=== PATIENT | female | born 1960 | race Caucasian/White ===

== ENCOUNTER 2017-08-18 08:28 | Observation (INO) | payer BC ==
[~2017-08-18] VITALS: Ht 154.9 cm; Wt 56.0 kg
[2017-08-18] VITALS (29 sets, daily range): BP systolic 116–171; BP diastolic 62–93; PULSE 58–90; RESP 16–23; Ht 154.9 cm; Wt 56.0 kg
[~2017-08-18 08:28] MED LIST: CIPROFLOXACIN 400 MG in D5W 200 ML IVPB SCH
[2017-08-18] MEDS ORDERED: ONDANSETRON 4 MG INJ IV PRN (08:30)
[2017-08-18] MEDS ORDERED: MIDAZOLAM 1 MG/ML 2 ML INJ IV PRN (08:30)
[2017-08-18] MEDS ORDERED: ATROPINE 1 MG/10 ML SYRINGE IV PRN (08:30)
[2017-08-18] MEDS ORDERED: LABETALOL HCL 20MG INJ IV PRN (08:30)
[2017-08-18] MEDS ORDERED: EPHEDrine SULFATE 50 MG/5 ML SYG IV PRN (08:30)
[2017-08-18] MEDS ORDERED: hydrALAzine 20 MG INJ IV PRN (08:30)
[2017-08-18] MEDS ORDERED: DIPHENHYDRAMINE 50 MG INJ IV PRN (08:30)
[2017-08-18] MEDS ORDERED: TEMA30CA6 PO (08:51)
[2017-08-18] MEDS ORDERED: ALPR1TAB2 PO (08:51)
[2017-08-18] MEDS ORDERED: RANI150T5 PO (08:51)
[2017-08-18] MEDS ORDERED: SENN-53 PO (08:52)
[2017-08-18] MEDS ORDERED: CARI350T PO (08:52)
[2017-08-18] MEDS ORDERED: AMLO5TAB4 PO (08:53)
[2017-08-18] MEDS ORDERED: ROCURONIUM 50 MG INJ ONE (09:56)
[2017-08-18] MEDS ORDERED: PROPOFOL 20 ML ONE (09:56)
[2017-08-18] MEDS ORDERED: NEOSTIGMINE 3 MG/3 ML SYRINGE ONE (09:56)
[2017-08-18] MEDS ORDERED: MIDAZOLAM 1 MG/ML 2 ML INJ ONE (09:56)
[2017-08-18] MEDS ORDERED: LIDOCAINE 2% (SDV) 5 ML INJ ONE (09:56)
[2017-08-18] MEDS ORDERED: GLYCOPYRROLATE 0.4 MG INJ ONE (09:56)
[2017-08-18] MEDS ORDERED: FENTAnyl 50 MCG/ML VIAL ONE ×2 (09:57→11:54)
[2017-08-18] MEDS ORDERED: MEPERIDINE 25 MG INJ ONE (11:54)
--- NOTE | 2017-08-18 11:55 | OPR ---
Date/Time of Note Date/Time of Note DATE: 08/18/17 TIME: 11:53 Operative Report Procedure Date: Aug 18, 2017 Preoperative Diagnosis bladder cancer Postoperative Diagnosis same Operation Performed TURBT of 2 large - extensive bladder cancer, right sided tumor 12 cm, left tumor 8 cm Surgeon see signature line Anesthesia Type: general Estimated Blood Loss: 50 - 100 ml's Transfusion Required: no Specimens bladder tumor Tubes/Drains [address] Complications: no Pt Condition Post Procedure: stable Disposition: PACU Indications clot retention, bladder cancer Operative\Procedure Findings large obstructing cancer Procedure Description Dictation # [id number] ORESTES CARCAMO Aug 18, 2017 11:55
[2017-08-18] MEDS ORDERED: CARISOPRODOL 350 MG TAB PO PRN (12:00)
[2017-08-18] MEDS ORDERED: ALPRAZOLAM 1 MG TAB PO PRN (12:00)
[2017-08-18] MEDS: FENTAnyl 50 MCG/ML VIAL IV PRN ×2 (12:20→12:33)
[2017-08-18] MEDS ORDERED: MEPERIDINE 25 MG INJ IV PRN (12:30)
[2017-08-18] MEDS ORDERED: ZOLPIDEM 5 MG TAB PO PRN (12:30)
[2017-08-18] MEDS ORDERED: MEPERIDINE 10 MG/ML 30 ML PCA IV SCH (12:30)
[2017-08-18] MEDS ORDERED: FENTAnyl 50 MCG/ML VIAL IV PRN ×2 (12:30)
--- NOTE | 2017-08-18 13:19 | OPR ---
DATE OF OPERATION: 08/18/2017 HISTORY: Lety Boles is a 57-year-old female with recurrent clot retention secondary to extensive bladder cancer, now presents for cystoscopy, trans resection of bladder tumor. How the procedure is performed, potential complications, and limitations have additionally been discussed. Preoperatively we discussed the extensive nature of the cancer, the potential for inability to remove all the cancer, transfusion continue bleeding, pain, bladder perforation especially in light of the extensive bladder cancer requiring a large amount of resection, potential for stage intervention, removal of the entire bladder, potential open procedure, damage to her urethral, vaginal, bladder, ureteral orifice, colon and other surrounding organs. The patient understands this is a high-risk case and she is requesting an attempt to preserve her bladder and would like to proceed with the above. In the office specific consent has been signed. PREOPERATIVE DIAGNOSIS: Bladder cancer. POSTOPERATIVE DIAGNOSIS: Bladder cancer. SURGEON: Mendez Altamiraon MD ANESTHESIA: General. FINDINGS: Extensive bladder cancer which is obstructing in nature and encompassing the majority of the bladder. COMPLICATIONS: None. DRAINS: A 22-[place] [address] Taylor catheter. SPECIMEN: Bladder cancer. OPERATIVE PROCEDURE: The patient was brought into the operating room, placed on operating room table in supine lithotomy position. She was prepped and draped usual fashion after anesthesia was induced. A time-out was undertaken. Appropriate pressure 12 points were padded. She received preop antibiotic therapy. Sequential compression devices were applied. Rigid cystoscopy was undertaken with a 30 degree and 70 degrees angle lens. Once insertion of the rigid cystoscope into the urethra, obstructing cancer could be appreciated. At first it was unclear where this cancer is noted. With more definitive endoscopic evaluation an exceedingly large bladder tumor which is greater than 10 cm in size was noted to be papillary in nature and obstructing a large part of the opening of the bladder. I was unable to put the cystoscope proximal to the tumor despite multiple attempts. Additionally, it appears there is a left- sided bladder tumor. A continuous resectoscope was then inserted into the bladder, which allowed for transurethral resection of the bladder cancer only under direct vision was performed. This was undertaken at the anterior aspect of the tumor. A very vascular tumor could be appreciated which immediately bled. This was noted to have a brisk blood supply. This coincides with the patient's history of recurrent unremitting clot retention. The resection was taken superficially. The loop of the resectoscope was always under direct vision and no blind cutting was undertaken at any time. Resection was taken superficially from the medial aspect to the right lateral wall from the anterior toward the posterior aspect which allowed for shaving of the tumor down toward the base. A very wide base was appreciated with multiple blood vessels. The entire tumor was subsequently resected with pinpoint hemostasis being obtained. A very large wide bed of base was appreciated. The base encompassed from the level of the dome of the bladder the entire right lateral wall from the level of the bladder neck to the posterior wall just adjacent to the right ureteral orifice. Just adjacent to the right ureteral orifice were papillary lesions. All of the above were resected and then pinpoint hemostasis was obtained. The right ureteral orifice was well preserved. At this time no active bleeding could be appreciated except for nonspecific oozing. Attention was then drawn to the remaining portion of the bladder where a very large left lateral bladder tumor was appreciated extending from the left lateral wall onto the bladder neck down to the posterior wall and then onto the left hemitrigone. This was more flat in nature, and the tumor was both resected and coagulated. Pinpoint hemostasis was obtained. No perforation could be appreciated. The left ureteral orifice was well preserved. At this time thorough hemostasis was noted without any discrete points, but due to the very nature of the base of the tumors there was just some generalized oozing. Due to the generalized oozing it was decided to use initiate slow continuous bladder irrigation. A 22-[place] [address] Taylor catheter was inserted and slow continuous bladder irrigation was initiated which was noted to be clear in nature. This was attached to a gravity drainage bag. She was transferred to recovery room in stable condition, and hopefully in the morning time continues bladder irrigation will be stopped and left to gravity drainage, at which point she will be discharged home. The potential for staged intervention must be entertained. Will await final pathology and clinical course of the patient. She tolerated this well without any noted complications. Dictated By: Mendez Altamirano MD /bruno/jodi /Document#: [id number]
[2017-08-18] MEDS ORDERED: MEPERIDINE 50 MG INJ IM PRN (13:30)
[2017-08-18] MEDS ORDERED: ACETAMINOPHEN 325 MG TAB PO PRN (13:30)
--- NOTE | 2017-08-18 14:52 | CONS ---
Date/Time of Note Date/Time of Note DATE: 08/18/17 TIME: 14:39 Assessment/Plan Assessment/Plan Problems: (1) Aftercare following surgery for cancer or tumor Status: Acute Comment: She is postop and has bladder irrigation in place. She will be brought into the hospital via aggressively following her. Please note I am not certain that she has had urinary culture done she will be continued on antibiotics. (2) Tobacco abuse Status: Chronic Comment: She has been counseled. We will go ahead and use a nicotine patch at this time to help carry her through the hospitalization (3) Chronic obstructive pulmonary disease Status: Chronic Comment: She was on Qvar and as needed albuterol. Given that she is immediately postop and will treat this more aggressively at least for the moment. She will be on Singular, Advair Spiriva and as needed Xopenex. Be fine -tuned later when she is in the less risky state Qualifiers: Qualified Code: J43.9 - Pulmonary emphysema, unspecified emphysema type (4) Gastroesophageal reflux disease Status: Chronic Comment: Continue H2 receptor antagonist Qualifiers: Qualified Code: K21.9 - Gastroesophageal reflux disease without esophagitis (5) Benzodiazepine dependence Status: Chronic Comment: Noted. Will need to continue her on benzodiazepines to avoid any withdrawal syndrome (6) Essential hypertension Status: Chronic Comment: Continue amlodipine. Consultation Date/Type/Reason Admit Date/Time August 18, 2017 Date of Consultation: Aug 18, 2017 Type of Consultation: Internal medicine Reason for Consultation Postop assistance with medical problems Referring Provider: ORESTES CARCAMO of Present Illness 57-year-old female admitted by Dr. Carcamo for TURBT. History of recurrent urinary tract infections and hematuria was identified as having 2 bladder tumors. Pathology is pending. She is brought in and has had surgery to remove these. Postoperatively we are asked to assist in her care. Her primary care physician is Dr. Ce Reyes Constitutional: no complaints (Eyes fevers chills or sweats) Eyes: no complaints ENT: no complaints Respiratory: cough (Reports history of COPD), shortness of breath Cardiovascular: no complaints Gastrointestinal: other (Gastroesophageal reflux disease) Genitourinary: bleeding, dysuria Musculoskeletal: other (Pain in both feet left greater than right) Skin: no complaints Neurologic: no complaints Endocrine: no complaints Lymphatic: no complaints Psychological: no complaints Immunologic: no complaints Past Medical History 1) hypertension, 2) COPD 3) tobacco abuse 4) bladder tumors 2 5) recurrent urinary tract infections 6) 5 para 2 AB 3, 7) gastroesophageal reflux disease, 8) chronic benzodiazepine use Past Surgical History Past Surgical Hx: cholecystectomy, other (Status post hernia repair-ventral) Family History Significant Family History: asthma, hypertension, other (Ovarian cancer in her mother and sister) Social History Alcohol Use: rarely Smoking Status: Current every day smoker Drug Use: none Other Social History In [facility] till the age of 5 and [employer] 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 She is now disabled and supported by [facility] and lives with her brother where she rents a room Exam/Review of Systems Vital Signs Vitals Vital Signs Date Time Temp Pulse Resp B/P Pulse Ox O2 Delivery O2 Flow Rate FiO2 08/18/17 14:19 74 20 135/75 97 Nasal Cannula 2.0 08/18/17 11:49 98.8 Exam Constitutional: alert, oriented Psych: no complaints Head: atraumatic, normocephalic Eyes: EOMI, nl conjunctiva, nl lids, nl sclera ENMT: mucosa pink and moist, nl external ears & nose, nl lips & teeth, nl nasal mucosa & septum Neck: non-tender, supple Respiratory: clear to auscultation, diminished breath sounds Cardiovascular: nl pulses, regular rate and rhythm Gastrointestinal: nl liver, spleen, non-tender, soft, surgical scars ( Abdominal scar) Extremities: normal pulses, other (Large calluses) Neurological: CREDIT DIRECTOR II-XII intact, nl mental status, nl speech, nl strength Skin: nl turgor, rash or lesions Medications Medications Current Medications Miscellaneous Information MEDICATION REQUIRES CLARIFICATION: Q8H XX ; Start 08/17/17 at 16:30 Ciprofloxacin/ Dextrose (Cipro Ivpb) 200 ml @ 200 mls/hr OC IVPB ; Start at 06:00; Stop 08/18/17 at 20:00 Alprazolam (Xanax) 1 mg TID PRN PO ANXIETY; Start 08/18/17 at 12:00 Amlodipine Besylate (Norvasc) 5 mg DAILY PO ; Start 08/19/17 at 09:00 Carisoprodol (Soma) 350 mg QHS PRN PO MUSCLE SPASMS; Start 08/18/17 at 12:00 Ranitidine HCl (Zantac) 150 mg Q12 PO ; Start 08/18/17 at 21:00 Senna 1 tab 1 tab DAILY PO ; Start 08/19/17 at 09:00 Dextrose/Sodium Chloride (D5-1/2ns) 1,000 ml @ 50 mls/hr Q20H IV ; Start at 12:00 Ciprofloxacin (Cipro) 500 mg BID@06,18 PO ; Start 08/18/17 at 18:00 Meperidine HCl (Demerol REBRANDER) 180 mg Q4PCA IV Last administered on 08/18/17t 13: 51; Admin Dose 180 MG; Start 08/18/17 at 12:30 Acetaminophen (Tylenol Tab) 650 mg Q4H PRN PO PAIN 1-3; Start 08/18/17 at 13:30 Meperidine HCl (Demerol) 50 mg Q4H PRN IM PAIN 4-10; Start 08/18/17 at 13:30 KENDRA SWEENEY MD Aug 18, 2017 14:50
--- NOTE | 2017-08-18 14:53 | HP ---
DATE OF ADMISSION: 08/18/2017 HISTORY OF PRESENT ILLNESS: Lety is a 57-year-old female, who presented to my service with a greater than 1.5 year history of on and off gross hematuria which has required her to go to the emergency room on multiple occasions. She has additionally receiving antibiotic therapy for the above on multiple occasions. She has had clot retention. A CT scan of the abdomen and pelvis without contrast was obtained on February 2017 demonstrating a 4.5 cm and 3.5 cm soft tissue mass raising concern for bladder cancer. A limited cystoscopy in the office was obtained due to patient cooperation which demonstrated extensive bladder cancer which is obstructing in nature. Today, she presents for cystoscopy and attempt for removal of bladder cancer possible bilateral insertion of ureteral stents. Despite my concern that she is a smoker of which I have requested that she stop smoking, she continues to smoke. The patient understands that this is a high-risk procedure. PAST MEDICAL HISTORY: Hypertension, cholelithiasis. PAST SURGICAL HISTORY: Cholecystectomy, hernia repair. ALLERGIES: OPIATES AND PENICILLIN. THE PATIENT STATES THAT SHE GETS MARKEDLY NAUSEOUS AND HAS DIFFICULTY WITH OPIATES, BUT HAS TOLERATED DEMEROL AND FENTANYL BEFORE. PHYSICAL EXAMINATION: LUNGS: Breath sounds bilaterally. HEART: Regular rate and rhythm. ABDOMEN: Soft, nondistended, nontender. No palpable masses. Flank is no CVA tenderness. No masses. IMPRESSION: Extensive bladder cancer. PLAN: Transurethral resection of the bladder tumor, possible retrograde pyelogram, insertion of stent, how the procedure is performed, potential complications have been explained to the patient at length in the office, as well as today. Patient understands that this is considered to be a high-risk procedure and that uncontrolled bleeding may be encountered requiring a secondary procedure including open procedure or embolization. The potential that I am unable to remove all the cancer has additionally been discussed. The increased risk for perforation of the bladder requiring open procedure or secondary procedure was reviewed. Additionally, she understands the risk for bleeding, infection, pain, transfusion, vaginal, bladder, ureteral, colon injury and the potential for insertion of stent should the stent be inserted. The requirement for removal of stent or exchange within a 3-4 months of time to avoid stricture, encrustation, infection have additionally been discussed. The patient understands the above and would like to procedure. Additionally, consider stopping smoking. Patient understands association of smoking and bladder cancer. Dictated By: Mendez Altamirano MD /bruno/marcus /Document#: [id number]
[2017-08-18] MEDS: NICOTINE (21 MG/24 HR) PATCH TRANSDERM SCH (15:00)
[2017-08-18] MEDS ORDERED: LEVALBUTEROL (NEB) 0.63 MG/3 ML AMP HHN PRN (15:00)
[2017-08-18] MEDS ORDERED: TIOTROPIUM 18 MCG CAPSULE INHA DEV INH ONE (15:00)
[2017-08-18] MEDS: DEXTROSE 5%-0.45% NACL 1,000 ML IV SCH (17:40)
[2017-08-18] MEDS: CIPROFLOXACIN 500 MG TAB PO SCH (17:40)
[2017-08-18] MEDS: ONDANSETRON 4 MG INJ IV PRN (19:37)
[2017-08-18] MEDS: SALMETEROL/FLUTICASONE 250/50 INHA INH SCH (20:27)
[2017-08-18] MEDS: RANITIDINE 150 MG TAB PO SCH (20:27)
[2017-08-18] MEDS ORDERED: MONTELUKAST 10 MG TAB PO SCH (21:00)
[2017-08-19 04:23] VITALS: BP 144/80; PULSE 78; RESP 18
[2017-08-19] MEDS: DEXTROSE 5%-0.45% NACL 1,000 ML IV SCH (04:39)
[2017-08-19] MEDS: ONDANSETRON 4 MG INJ IV PRN ×2 (04:39→12:17)
[2017-08-19] MEDS: CIPROFLOXACIN 500 MG TAB PO SCH (04:39)
[2017-08-19 05:47] LABS: ABNORMAL IP MESSAGE 1; BASOPHILS % 0.2 % (0.0-2.0); HEMATOCRIT 48.2 % (37.0-47.0); LYMPHOCYTES # 1.9 10^3/ul (0.8-2.9); LYMPHOCYTES % 10.9 % (15.0-51.0); MEAN CORPUSCULAR HGB CONC 33.2 g/dl (32.0-37.0); MEAN CORPUSCULAR VOLUME 96.4 fl (82.0-101.0); MEAN PLATELET VOLUME 10.9 fl (7.4-10.4); MONOCYTE # 1.7 10^3/ul (0.3-0.9); MONOCYTES % 9.6 % (0.0-11.0); NEUTROPHIL # 13.9 10^3/ul (1.6-7.5); PLATELET COUNT 277 10^3/UL (140-415); RED CELL DISTRIBUTION WIDTH 14.3 % (11.5-14.5); WHITE BLOOD COUNT 17.6 10^3/ul (4.8-10.8)
[2017-08-19 06:15] LABS: POSITIVE DIFF @See below
[2017-08-19 08:09] VITALS: BP 134/80; RESP 16
[2017-08-19] MEDS: RANITIDINE 150 MG TAB PO SCH (08:14)
[2017-08-19] MEDS: SALMETEROL/FLUTICASONE 250/50 INHA INH SCH (08:15)
[2017-08-19] MEDS: NICOTINE (21 MG/24 HR) PATCH TRANSDERM SCH (08:16)
[2017-08-19] MEDS ORDERED: TIOTROPIUM 18 MCG CAPSULE INHA DEV INH SCH (09:00)
[2017-08-19] MEDS ORDERED: AMLODIPINE 5 MG TAB PO SCH ×2 (09:00)
[2017-08-19] MEDS ORDERED: SENNA TAB PO SCH (09:00)
--- NOTE | 2017-08-19 09:07 | PN ---
Date/Time of Note Date/Time of Note DATE: 08/19/17 TIME: 09:02 Assessment/Plan VTE Prophylaxis VTE Prophylaxis Intervention: SCD's Lines/Catheters IV [facility] Peripheral IV Urinary Cath still in place: Yes Reason Cath still needed: urinary retention Assessment/Plan Chief Complaint/Hosp Course 57-year-old female admitted by Dr. Altamirano for TURBT. History of recurrent urinary tract infections and hematuria was identified as having 2 bladder tumors. Pathology is pending. She is brought in and has had surgery to remove these. Postoperatively we are asked to assist in her care. Her primary care physician is Dr. Ce Reyes Problems: (1) Essential hypertension Status: Chronic Comment: Blood pressure is adequately controlled on current regimen. (2) Aftercare following surgery for cancer or tumor Onset Date: ~ 08/18/2017 Status: Acute Comment: She is having some bladder spasm and pain. It is my understanding of the continuous bladder irrigation was stopped this morning. Dr. Altamirano will be seeing the patient making determinations about ongoing care and discharge time. Please note this patient is extremely scared about what the outcome of this is going to be and especially about some of the issues she has had with her insurance getting her connected with the appropriate subspecialist. She has had a CT scan before coming into the hospital. As such repeating CT scan now will not offer significant benefits. Will attempt to be coordinated through her primary care physician Dr. Ce Reyes (3) Tobacco abuse Status: Chronic Comment: He has been re-counseled about this. She is refused a nicotine patch. (4) Chronic obstructive pulmonary disease Status: Chronic Comment: She has her medications however she is declining to use the inhalers as advised. I have re-counseled her on the rationale for treatment goals of treatment risks and benefits of treatment. Qualifiers: COPD type: emphysema Emphysema type: unspecified Qualified Code: J43.9 - Pulmonary emphysema, unspecified emphysema type (5) Gastroesophageal reflux disease Status: Chronic Comment: Noted and stable. Qualifiers: Esophagitis presence: without esophagitis Qualified Code: K21.9 - Gastroesophageal reflux disease without esophagitis Subjective 24 Hr Interval Summary Free Text/Dictation Patient is sitting in bed complains of spasm at the bladder. Constitutional: no complaints (No fevers chills or sweats) Respiratory: cough, other (Denies shortness of breath) Cardiovascular: no complaints Gastrointestinal: no complaints Genitourinary: other Musculoskeletal: no complaints Exam/Review of Systems Vital Signs Vitals Vital Signs Date Time Temp Pulse Resp B/P Pulse Ox O2 Delivery O2 Flow Rate FiO2 08/19/17 08:09 98.7 70 16 134/80 94 08/19/17 04:23 Nasal Cannula 2.0 Intake and Output 08/18/17 08/18/17 08/19/17 15:00 23:00 07:00 Intake Total 7550 ml 3170 ml 9960 ml Output Total 8750 ml 4280 ml 6200 ml Balance -1200 ml -1110 ml 3760 ml Exam Occasion female appears older than her chronologic age Constitutional: alert, oriented Head: atraumatic, normocephalic Neck: non-tender, supple Respiratory: other (Scant wheezing with increased AP diameter minimally decreased I;E ratio no consolidated) Cardiovascular: nl pulses, regular rate and rhythm Extremities: normal pulses Results Result Diagram: 08/19/17 0503 Results 24 hrs Laboratory Tests Test 08/19/17 05:03 White Blood Count 17.6 H Red Blood Count 5.00 Hemoglobin 16.0 Hematocrit 48.2 H Mean Corpuscular Volume 96.4 Mean Corpuscular Hemoglobin 32.0 Mean Corpuscular Hemoglobin Concent 33.2 Red Cell Distribution Width 14.3 Platelet Count 277 Mean Platelet Volume 10.9 H Neutrophils % 79.0 H Lymphocytes % 10.9 L Monocytes % 9.6 Eosinophils % 0.0 Basophils % 0.2 Nucleated Red Blood Cells % 0.0 Neutrophils # 13.9 H Lymphocytes # 1.9 Monocytes # 1.7 H Eosinophils # 0.0 Basophils # 0.0 Nucleated Red Blood Cells # 0.0 Medications Medications Current Medications Alprazolam (Xanax) 1 mg TID PRN PO ANXIETY; Start 08/18/17 at 12:00 Carisoprodol (Soma) 350 mg QHS PRN PO MUSCLE SPASMS; Start 08/18/17 at 12:00 Ranitidine HCl (Zantac) 150 mg Q12 PO Last administered on 08/19/17 08:14; Admin Dose 150 MG; Start 08/18/17 at 21:00 Senna 1 tab 1 tab DAILY PO Last administered on 08/19/17 08:14; Admin Dose 1 TAB; Start 08/19/17 at 09:00 Dextrose/Sodium Chloride (D5-1/2ns) 1,000 ml @ 50 mls/hr Q20H IV Last administered on 08/19/17 04:39; Admin Dose 50 MLS/HR; Start 08/18/17 at 12:00 Acetaminophen (Tylenol Tab) 650 mg Q4H PRN PO PAIN 1-3; Start 08/18/17 at 13:30 Meperidine HCl (Demerol) 50 mg Q4H PRN IM PAIN 4-10; Start 08/18/17 at 13:30 Nicotine (Nicoderm 21 Mg/ 24hr) 1 patch DAILY TRANSDERM Last administered on 08:16; Admin Dose 1 PATCH; Start 08/18/17 at 15:00 Montelukast Sodium (Singulair) 10 mg HS PO Last administered on 08/18/17 20:28 ; Admin Dose 10 MG; Start 08/18/17 at 21:00 Salmeterol Xinafoate/ Fluticasone (Advair 250/50 Diskus) 1 inh BID INH Last administered on 08/19/17 08:15; Admin Dose 1 INH; Start 08/18/17 at 21:00 Tiotropium [place] (Spiriva) 1 inh DAILY INH Last administered on 08/19/17 08: 15; Admin Dose 1 INH; Start 08/19/17 at 09:00 Amlodipine Besylate (Norvasc) 5 mg DAILY PO Last administered on 08/19/17 08: 15; Admin Dose 5 MG; Start 08/19/17 at 09:00 Ondansetron HCl (Zofran Inj) 4 mg Q8H PRN IV NAUSEA AND/OR VOMITING Last administered on 08/19/17 04:39; Admin Dose 4 MG; Start 08/18/17 at 19:30 KENDRA SWEENEY MD Aug 19, 2017 09:07
--- NOTE | 2017-08-19 09:15 | PN ---
DATE: 08/19/2017 SUBJECTIVE DATA: The patient is status post TURBT, on postop day one. Patient is having nausea. Of note, the patient is allergic to all narcotics. Previously, she has taken on Demerol with Reglan as Demerol makes her markedly nauseous. This was noted at the time of her cholecystectomy. 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 PHYSICAL EXAMINATION: VITAL SIGNS: Stable. Afebrile. LUNGS: Good breath sounds bilaterally. HEART: Regular rate and rhythm. ABDOMEN: Soft. Positive bowel sounds. It is benign appearing, although she has generalized tenderness. Slow CBI is noted for clear efflux. No gross hematuria. CBI discontinued. LABORATORY AND DIAGNOSTIC DATA: White blood count 17,000, hemoglobin 16.0. IMPRESSION: 1. Status post debulking of a large amount of bladder cancer. 2. Nausea which is attributed to narcotic usage. 3. Leukocytosis. PLAN: Discontinue Cipro, Discontinue Demerol. Toradol 20 mg p.o. x1 and then 10 mg p.o. q.6 hours p.r.n. pain. Taylor to gravity. Of note, patient is very hungry this morning. Thus, we will feed her and monitor. Further intervention and evaluation pending clinical course and results of above. Dictated By: Mendez Altamirano MD /bruno/torin /Document#: [id number]
[2017-08-19] MEDS ORDERED: KETOROLAC 15 MG INJ IV PRN (09:30)
[2017-08-19 12:43] LABS: CALCIUM 9.2 mg/dl (8.4-10.2); CREATININE 1.03 mg/dl (0.44-1.00)
[2017-08-19 14:07] VITALS: BP 123/73; RESP 16
== END 2017-08-19 14:08 | disposition home or self-care (01) ==
LOC: SDS 08:28 → REC 12:00 → SDS 12:00 → MS1 14:15
PROVIDERS: ADMIT Urology; ATTEND Urology
DX: C67.9 Malignant neoplasm of bladder, unspecified (principal); J44.9 Chronic obstructive pulmonary disease, unspecified; K21.9 Gastro-esophageal reflux disease without esophagitis; I10 Essential (primary) hypertension; Z72.0 Tobacco use; F13.20 Sedative, hypnotic or anxiolytic dependence, uncomplicated; Z90.49 Acquired absence of other specified parts of digestive tract
CPT/HCPCS: 52240; 80048; 85025; 86592; 86803; 87340; 88305; J1200; J1885; J2175; J2250; J2405; J2710; J3010; J7042; Z7500; Z7512; Z7610; G0378